=== PATIENT | female | born 1990 | race African-American/Black ===

== ENCOUNTER 2017-10-12 06:06 | Inpatient (IN) | payer OTHER ==
[2017-10-12] MEDS ORDERED: IV RINGERS,LACTATED 1000ML 1,000 ML IV ×2 (06:15→08:38)
[2017-10-12] MEDS ORDERED: ONDANSETRON PF 4 MG/2 ML VIAL. (07:37)
[2017-10-12] MEDS ORDERED: fentaNYL PF VIAL 100 MCG/2 ML VIAL (07:37)
[2017-10-12] MEDS ORDERED: OXYTOCIN 10 UNIT/ML VIAL. ×2 (07:37→08:50)
[2017-10-12] MEDS ORDERED: ePHEDrine PF IN SALINE 50 MG/5 ML DISP.SYRIN IV (07:37)
[2017-10-12] MEDS ORDERED: MORPHINE PF 5 MG/10 ML VIAL. (07:37)
[2017-10-12 07:39] LABS: ADD MAN DIFF? NO
[2017-10-12] MEDS: CITRIC ACID/SODIUM CITRATE 30 ML SOLUTION. PO (07:45)
[2017-10-12 08:19] LABS: BASO % 0 % (0-3); EOS # 0.1 x10^3/uL (0.0-0.7); EOS % 2 % (0-3); HEMATOCRIT 34.3 % (36.0-47.0); HEMOGLOBIN 11.4 g/dL (12.0-15.5); LYMPH # 2.9 x10^3/uL (1.0-4.8); LYMPH % 36 % (24-48); MEAN CORPUSCULAR HEMOGLOBIN 27 pg (25-35); MEAN CORPUSCULAR HGB CONC 33 g/dL (31-37); MEAN CORPUSCULAR VOLUME 81 fL (79-100); MONO # 0.6 x10^3/uL (0.0-1.1); MONO % 8 % (0-9); NEUT # 4.3 x10^3uL (1.8-7.7); NEUT % 54 % (31-73); PLATELET COUNT 225 x10^3/uL (140-400); RED BLOOD COUNT 4.22 x10^6/uL (3.50-5.40); RED CELL DISTRIBUTION WIDTH 15.8 % (11.5-14.5)
[2017-10-12] MEDS ORDERED: DEXAMETHASONE SOD PHOS 20 MG/5 ML VIAL. (08:35)
[2017-10-12] MEDS ORDERED: METOCLOPRAMIDE HCL 10 MG/2 ML VIAL. (08:35)
[2017-10-12] MEDS ORDERED: FAMOTIDINE 20 MG/2 ML VIAL (08:35)
[2017-10-12] MEDS ORDERED: LIDOCAINE 1% PF 2 ML VIAL. ID (08:45)
[2017-10-12] MEDS ORDERED: ATROPINE 0.5 MG/5 ML DISP.SYRIN. IV (08:45)
[2017-10-12] MEDS ORDERED: ONDANSETRON PF 4 MG/2 ML VIAL. IV ×2 (08:45→09:00)
[2017-10-12] MEDS ORDERED: NALOXONE 0.4 MG/ML VIAL. IV (08:45)
[2017-10-12] MEDS ORDERED: fentaNYL PF VIAL 100 MCG/2 ML VIAL IV ×2 (08:45)
[2017-10-12] MEDS ORDERED: MORPHINE SULFATE 2 MG/ML DISP.SYRIN. IV (08:45)
[2017-10-12] MEDS ORDERED: PROCHLORPERAZINE 10 MG/2 ML VIAL. IV (08:45)
[2017-10-12] MEDS ORDERED: HYDROmorphone 2 MG/ML VIAL IV (08:45)
[2017-10-12] MEDS ORDERED: OXYTOCIN 30 UNIT/500 ML PREMIX 500 ML IV (09:00)
[2017-10-12] MEDS ORDERED: 0.9 % SODIUM CHLORIDE 10 ML DISP.SYRIN. IV (09:00)
[2017-10-12] MEDS ORDERED: ZOLPIDEM 5 MG TABLET. PO (09:00)
[2017-10-12] MEDS: KETOROLAC 30 MG/ML INJ. IV ×2 (10:35→18:10)
[2017-10-12] MEDS ORDERED: ceFAZolin 2GM PREMIX 2 GM/50 ML BAG IV (12:00)
[2017-10-12] MEDS: diphenhydrAMINE ORAL ELIXIR 12.5 MG/5 ML ML PO (18:25)
[2017-10-12] MEDS: IV RINGERS,LACTATED 1000ML 1,000 ML IV (19:52)
[2017-10-12] MEDS: IBUPROFEN 800 MG TABLET. PO (22:14)
[2017-10-12] MEDS: DOCUSATE SODIUM 100 MG CAPSULE. PO (22:14)
[2017-10-12] MEDS: oxyCODONE/APAP 5/325 1 TAB TABLET PO (22:15)
[2017-10-13 05:03] LABS: ADD MAN DIFF? NO
[2017-10-13 05:28] LABS: BASO % 0 % (0-3); EOS % 0 % (0-3); HEMATOCRIT 27.9 % (36.0-47.0); LYMPH % 23 % (24-48); MEAN CORPUSCULAR HEMOGLOBIN 27 pg (25-35); MEAN CORPUSCULAR HGB CONC 32 g/dL (31-37); MEAN CORPUSCULAR VOLUME 82 fL (79-100); MONO % 8 % (0-9); NEUT # 8.8 x10^3uL (1.8-7.7); NEUT % 69 % (31-73); PLATELET COUNT 197 x10^3/uL (140-400); RED BLOOD COUNT 3.39 x10^6/uL (3.50-5.40); WHITE BLOOD COUNT 12.8 x10^3/uL (4.0-11.0)
[2017-10-13] MEDS: IBUPROFEN 800 MG TABLET. PO ×3 (05:39→21:27)
[2017-10-13] MEDS: oxyCODONE/APAP 5/325 1 TAB TABLET PO ×4 (05:39→21:27)
[2017-10-13] MEDS: SIMETHICONE 80 MG TAB.CHEW PO ×3 (09:09→21:32)
[2017-10-13] MEDS: DOCUSATE SODIUM 100 MG CAPSULE. PO ×2 (09:09→17:17)
[2017-10-13] MEDS: FERROUS SULFATE 325 MG TABLET. PO ×2 (09:10→17:17)
[2017-10-13] MEDS: MAG HYDROX/ALUMINUM HYD/SIMETH 30 ML ORAL.SUSP PO (18:32)
[2017-10-14] MEDS: DOCUSATE SODIUM 100 MG CAPSULE. PO (05:40)
[2017-10-14] MEDS: oxyCODONE/APAP 5/325 1 TAB TABLET PO ×2 (05:41→10:12)
[2017-10-14] MEDS: SIMETHICONE 80 MG TAB.CHEW PO ×3 (05:41→14:05)
[2017-10-14] MEDS: IBUPROFEN 800 MG TABLET. PO ×2 (05:41→14:05)
[2017-10-14] MEDS: FERROUS SULFATE 325 MG TABLET. PO (10:12)
[2017-10-14 23:10] LABS: RPR Non Reactive (Non Reactive)
== END 2017-10-14 16:07 | disposition home or self-care (01) | DRG 765 ==
LOC: 3 SO LND 06:06 → 3 NORTH 11:48
PROC: 10D00Z1 Extraction of Products of Conception, Low, Open Approach (ICD-10-PCS; principal; 2017-10-12)
DX: O34.211 Maternal care for low transverse scar from previous cesarean delivery (principal); D62 Acute posthemorrhagic anemia; O99.824 Streptococcus B carrier state complicating childbirth; Z37.0 Single live birth; Z3A.39 39 weeks gestation of pregnancy
CPT/HCPCS: 36415; 85025; 86593; 86850; 86900; 86901; J0690; J1100; J1885; J2270; J2405; J2590; J2765; J3010; J7120; S0028

== ENCOUNTER → 2019-08-21 | Outpatient (CLI) | payer OTHER ==
[2017-10-14 15:15] VITALS: BP 98/59
[~2019-08-21] MED LIST: DOCU-109 PO; IBUP-1060 PO; Ibuprofen PO; OXYC1TAB15 PO; PREN1TAB58 PO
[2019-08-21 09:49] LABS: BASO % 0 % (0-3); EOS # 0.1 x10^3/uL (0.0-0.7); EOS % 2 % (0-3); HEMATOCRIT 28.9 % (36.0-47.0); HEMOGLOBIN 9.6 g/dL (12.0-15.5); LYMPH # 2.9 x10^3/uL (1.0-4.8); LYMPH % 31 % (24-48); MEAN CORPUSCULAR HEMOGLOBIN 26 pg (25-35); MEAN CORPUSCULAR HGB CONC 33 g/dL (31-37); MEAN CORPUSCULAR VOLUME 77 fL (79-100); MONO # 0.8 x10^3/uL (0.0-1.1); MONO % 8 % (0-9); NEUT # 5.5 x10^3/uL (1.8-7.7); NEUT % 59 % (31-73); PLATELET COUNT 255 x10^3/uL (140-400); RED BLOOD COUNT 3.75 x10^6/uL (3.50-5.40); RED CELL DISTRIBUTION WIDTH 14.1 % (11.5-14.5); WHITE BLOOD COUNT 9.4 x10^3/uL (4.0-11.0)
== END | disposition home or self-care (01) ==
LOC: LAB 09:19
PROVIDERS: ATTEND Obstetrics & Gynecology
DX: Z32.01 Encounter for pregnancy test, result positive (principal); O34.219 Maternal care for unspecified type scar from previous cesarean delivery; O26.843 Uterine size-date discrepancy, third trimester
CPT/HCPCS: 36415; 85025; 86592; 86703; 86762; 86850; 86900; 86901; 87340

== ENCOUNTER 2019-09-01 16:49 | Inpatient (IN) | payer OTHER ==
[~2019-09-01] VITALS: Ht 154.9 cm; Wt 107.0 kg
[2019-09-01] MEDS: FERROUS SULFATE 325 MG TABLET. PO SCH (16:30)
[2019-09-01] MEDS ORDERED: IV RINGERS,LACTATED 1000ML 1,000 ML IV PRN (17:15)
[2019-09-01] MEDS ORDERED: CITRIC ACID/SODIUM CITRATE 30 ML SOLUTION. PO ONE (19:30)
[2019-09-01] MEDS ORDERED: ceFAZolin 2GM PREMIX 2 GM/50 ML BAG IV ONE (20:00)
[2019-09-01 20:12] VITALS: BP 107/57
[2019-09-01 21:45] LABS: BASO % 0 % (0-3); EOS # 0.1 x10^3/uL (0.0-0.7); EOS % 1 % (0-3); HEMOGLOBIN 9.7 g/dL (12.0-15.5); LYMPH # 2.8 x10^3/uL (1.0-4.8); LYMPH % 33 % (24-48); MEAN CORPUSCULAR HEMOGLOBIN 26 pg (25-35); MEAN CORPUSCULAR HGB CONC 34 g/dL (31-37); MEAN CORPUSCULAR VOLUME 77 fL (79-100); MONO # 0.8 x10^3/uL (0.0-1.1); MONO % 9 % (0-9); NEUT # 4.7 x10^3/uL (1.8-7.7); NEUT % 56 % (31-73); PLATELET COUNT 234 x10^3/uL (140-400); RED BLOOD COUNT 3.76 x10^6/uL (3.50-5.40); RED CELL DISTRIBUTION WIDTH 15.1 % (11.5-14.5); WHITE BLOOD COUNT 8.5 x10^3/uL (4.0-11.0)
[2019-09-01] MEDS: diphenhydrAMINE HCL 25 MG CAPSULE PO PRN (22:10)
[2019-09-01 22:22] LABS: BILIRUBIN,URINE NEGATIVE (NEG); CLARITY,URINE CLEAR; COLOR,URINE YELLOW; NITRITE,URINE NEGATIVE (NEG); PROTEIN,URINE NEGATIVE (NEG-TRACE)
[2019-09-01 22:26] LABS: SQUAMOUS EPITHELIAL CELL,UR MOD /LPF
[2019-09-01 22:27] LABS: BACTERIA,URINE MODERATE /HPF (0-FEW); TRICHOMONAS,URINE PRESENT; WBC,URINE 20-40 /HPF (0-4)
[2019-09-01 22:29] LABS: BARBITURATES NEG (NEG); BENZODIAZEPINES NEG (NEG); CANNABINOIDS POS (NEG); COCAINE NEG (NEG); METHADONE NEG (NEG); OPIATES NEG (NEG); PHENCYCLIDINE NEG (NEG); RBC,URINE OCC /HPF (0-2)
[2019-09-01 22:36] LABS: AMPHETAMINE/METHAMPHETAMINE NEG (NEG)
[2019-09-02] VITALS (9 sets, daily range): BP systolic 105–125; BP diastolic 48–68
[2019-09-02] MEDS: IV RINGERS,LACTATED 1000ML 1,000 ML IV SCH ×3 (04:06→18:47)
[2019-09-02] MEDS ORDERED: DEXAMETHASONE SOD PHOS 4 MG/ML VIAL ONE (07:42)
[2019-09-02] MEDS ORDERED: MORPHINE PF 10 MG/10 ML AMPUL. ONE (07:42)
[2019-09-02] MEDS ORDERED: ONDANSETRON PF 4 MG/2 ML VIAL. ONE (07:42)
[2019-09-02] MEDS ORDERED: OXYTOCIN 10 UNIT/ML VIAL. ONE ×3 (07:42)
[2019-09-02] MEDS ORDERED: PHENYLEPHRINE in 0.9% NACL PF 1 MG/10 ML SYRINGE. IV ONE (07:42)
[2019-09-02] MEDS ORDERED: fentaNYL PF VIAL 100 MCG/2 ML VIAL ONE (07:42)
--- NOTE | 2019-09-02 07:58 | PDOC1 ---
OB - History Hx of Present Care: Limited Care Ultrasounds: Other (U/S at hospital) Obstetrical Complications: None Medical Complications: None Past Family/Social History * Past Medical, Surgical, Family and Obstetric Histories reviewed from chart. Rubella: Immune RPR/VDRL: Negative GBS Status: Positive HBsAG: Negative OB - Chief Complaint & HPI Date of Admission: Date of Admission: Sep 01, 2019 at 16:49 Chief Complaint/History : 5 Para: 3 EGA: 38 Reason for admission: section (BPP 02/08, Late PNC) Indication for : desires repeat Admission Nurse Assessment Rev: Yes OB - Admission Exam Physical Exam Vitals: VS - Last 72 Hours, by Label Date Time Temp Pulse Resp B/P (MAP) Pulse Ox O2 Delivery O2 Flow Rate FiO2 09/01/19 20:12 98.7 88 16 107/57 (74) Room Air 98.7 HEENT: Normal Heart: Regular Rate Lungs: Clear Abdomen: Gravid, Non tender, Soft Extremities: Edema Reflexes: Normal Cervical Dilatation: None Effacement: 25% Station: -3 Membranes: Intact Heart Rate: Normal Accelerations: Accelerations Present Decelerations: No decelerations Contractions on Admission: >10 Minutes Apart Intensity: Mild Text A: 38 wks IUP Previous c/s x 3 BPP 6/8 P: Admit for repeat c/s. DB RAMOS Jr, MD Sep 02, 2019 07:58
[2019-09-02] MEDS ORDERED: 0.9 % SODIUM CHLORIDE 10 ML DISP.SYRIN. IV PRN (08:00)
[2019-09-02] MEDS ORDERED: OXYTOCIN 30 UNIT/500 ML PREMIX 500 ML IV PRN (08:00)
[2019-09-02] MEDS ORDERED: ONDANSETRON PF 4 MG/2 ML VIAL. IV PRN (08:00)
[2019-09-02] MEDS ORDERED: diphenhydrAMINE ORAL ELIXIR 12.5 MG/5 ML ML PO PRN (08:00)
[2019-09-02] MEDS ORDERED: MAG HYDROX/ALUMINUM HYD/SIMETH 30 ML ORAL.SUSP PO PRN (08:00)
[2019-09-02] MEDS ORDERED: SIMETHICONE 80 MG TAB.CHEW PO PRN (08:00)
[2019-09-02] MEDS ORDERED: ZOLPIDEM 5 MG TABLET. PO PRN (08:00)
[2019-09-02] MEDS ORDERED: ePHEDrine PF IN SALINE 50 MG/10 ML SYRINGE. IV ONE (08:22)
--- NOTE | 2019-09-02 08:40 | RAD ---
Examination: OB LIMITED, BIOPHYS PROFILE W/O NON STRESS History: Limited care. Comparison/Correlation: None Findings: Limited OB ultrasound exam was performed. Biophysical profile was performed. breathing movements score is 0/2. motion, tone, and amniotic fluid volume are each 2/2. Total biophysical profile score of 6/8. Cephalic lie is noted. Amniotic fluid index is 12.2. Fundal location of placenta is evident. heart rate of 130 beats per minute noted. Cardiac activity is seen. Biparietal diameter is 9.43 cm. Head circumference is 34.35 cm. Abdominal circumference is 34.18 cm. Femoral length is 7.4 cm. Head circumference abdominal circumference ratio is 1.0. Estimated weight is 3453 g. Gestational age is 38 weeks 4 days. EDC by ultrasound is 09/11/2019. Impression: Biophysical profile score of 6 out of 8. breathing movement score is 0 out of 2. Single living intrauterine gestation. Average ultrasound age is 30 weeks 4 days. Electronically signed by: Renny Judge MD (09/02/2019 8:37 AM) [facility]
[2019-09-02] MEDS ORDERED: LIDOCAINE 2% PF 5 ML VIAL. ONE (08:47)
--- NOTE | 2019-09-02 09:05 | PDOC4 ---
OB Operative Note Date: Sep 02, 2019 PRE OP DIAGNOSIS: Previoujs C- section POST OP DIAGNOSIS: Previous C- section OPERATION PERFORMED: R [facility] Surgeon Dr. Vera Anesthesia: Regional (Spinal) Blood Loss 700 ml Specimen placenta and OB Findings: Position (Vertex), Sex (Male), (8/9), Weight (3280 Gram) Complications none Additional Remarks ptDB Melgoza Jr, MD Sep 02, 2019 09:05
--- NOTE | 2019-09-02 09:19 | OP ---
DATE OF SURGERY: 09/02/2019 PREOPERATIVE DIAGNOSES: 1. A 38 weeks intrauterine . 2. Limited care. 3. Previous section x 3. 4. Biophysical profile 6/8. POSTOPERATIVE DIAGNOSIS: 1. A 38 weeks intrauterine . 2. Limited care. 3. Previous section x 3. 4. Biophysical profile 6/8. PROCEDURE: Repeat low-transverse section. SURGEON: Db Vera MD ANESTHESIA: Spinal. ESTIMATED BLOOD LOSS: 700 mL. COMPLICATIONS: None. FINDINGS: Viable male infant, Apgars 8 and 9, weight 3280 grams. Three-vessel cord placenta delivered manually. SUMMARY: A 28-year-old 5, para 3, 3 previous C-sections, had presented with limited care. Ultrasound indicated a 38-week gestation. The patient was having occasional contractions and had a BPP that was 6/8. Decision was made to proceed with repeat section. The patient was counseled on risks, benefits and expectations and voiced clear understanding to proceed. DESCRIPTION OF PROCEDURE: The patient was taken to surgery suite and placed in dorsal supine position. She was prepped with ChloraPrep and draped in a sterile fashion. After adequate anesthesia, a Pfannenstiel skin incision was made with scalpel down to and through the fascia. The fascia was extended laterally using curved Rodríguez scissors. The superior edge of fascia was grasped with 2 Nancy clamps and dissected free of the abdominal rectus muscles using blunt dissection along with Bovie cautery. The same process took place inferiorly. The abdominal rectus muscles were dissected bluntly. Peritoneum was entered sharply with Metzenbaum scissors. This incision was extended superiorly as well as inferiorly. The Brian ring retractor was placed. A low-transverse hysterotomy incision was made with scalpel down to the amniotic sac. Hysterotomy incision was extended laterally and superiorly digitally. Amniotomy was performed with Allis clamp, which elicited a moderate amount of clear fluid. With the aid of fundal pressure, the infant's head was delivered in a smooth atraumatic manner. With additional fundal pressure, the anterior shoulder was delivered followed by posterior shoulder and rest of the male was delivered. The was suctioned with bulb syringe orally and nasally. Umbilical cord was clamped twice and cut and viable male infant was handed to waiting nursing staff. Umbilical cord blood was then obtained. Three-vessel cord placenta was delivered manually. The uterus was then exteriorized and cleared of clot and debris with moist lap. Hysterotomy incision was reapproximated using #1 Vicryl suture in running locked fashion. A [id number]-wc-[id number] suture was placed in the right apex of the hysterotomy incision for better hemostasis. The uterus palpated firm. Fallopian tubes and ovaries appeared normal bilaterally. Posterior cul-de-sac was cleared of clot and debris with moist lap. The uterus was then returned to the abdomen. Pericolic gutters were cleared of clot and debris with a moist lap. Hysterotomy incision was reviewed and was hemostatic. The Brian ring retractor was removed. The peritoneum was reapproximated using 1 Vicryl suture in running fashion. The abdominal rectus muscles were reapproximated using 1 Vicryl suture in running fashion. The fascia was reapproximated using Stratafix in a running fashion. Skin was reapproximated using 4-0 Vicryl suture in a subcuticular manner. Prevena wound VAC was placed. The patient tolerated the procedure well and was taken to recovery room in stable condition. Sponge and needle count correct x 3. DB VERA MD DR: AHMET/martell JOB#: [id number] / [id number]
[2019-09-02] MEDS: KETOROLAC 30 MG/ML VIAL. IV PRN ×2 (10:47→21:09)
[2019-09-02] MEDS ORDERED: metroNIDAZOLE 500 MG TABLET PO ONE (20:00)
[2019-09-02] MEDS: oxyCODONE/APAP 5/325 1 TAB TABLET PO PRN (23:35)
[2019-09-03 01:32] VITALS: BP 113/61
[2019-09-03] MEDS: IBUPROFEN 400 MG TABLET. PO PRN ×2 (06:04→17:21)
[2019-09-03 06:11] VITALS: BP 116/64
[2019-09-03 06:53] LABS: BASO % 0 % (0-3); EOS % 0 % (0-3); HEMATOCRIT 26.2 % (36.0-47.0); HEMOGLOBIN 8.4 g/dL (12.0-15.5); LYMPH # 3.2 x10^3/uL (1.0-4.8); LYMPH % 25 % (24-48); MEAN CORPUSCULAR HEMOGLOBIN 25 pg (25-35); MEAN CORPUSCULAR HGB CONC 32 g/dL (31-37); MEAN CORPUSCULAR VOLUME 78 fL (79-100); MONO % 8 % (0-9); NEUT # 8.4 x10^3/uL (1.8-7.7); NEUT % 67 % (31-73); PLATELET COUNT 206 x10^3/uL (140-400); RED BLOOD COUNT 3.35 x10^6/uL (3.50-5.40); RED CELL DISTRIBUTION WIDTH 15.2 % (11.5-14.5); WHITE BLOOD COUNT 12.7 x10^3/uL (4.0-11.0)
--- NOTE | 2019-09-03 09:47 | PDOC ---
OB Progress Note Date of Service 09/03/19 Time of Evaluation 0940 Notes Pt. feeling well. Pain controlled. Lab Laboratory Tests Test 09/01/19 20:50 09/01/19 22:15 09/03/19 04:45 White Blood Count 8.5 x10^3/uL (4.0-11.0) 12.7 x10^3/uL (4.0-11.0) Red Blood Count 3.76 x10^6/uL (3.50-5.40) 3.35 x10^6/uL (3.50-5.40) Hemoglobin 9.7 g/dL (12.0-15.5) 8.4 g/dL (12.0-15.5) Hematocrit 29.0 % (36.0-47.0) 26.2 % (36.0-47.0) Mean Corpuscular Volume 77 fL (79-100) 78 fL (79-100) Mean Corpuscular Hemoglobin 26 pg (25-35) 25 pg (25-35) Mean Corpuscular Hemoglobin Concent 34 g/dL (31-37) 32 g/dL (31-37) Red Cell Distribution Width 15.1 % (11.5-14.5) 15.2 % (11.5-14.5) Platelet Count 234 x10^3/uL (140-400) 206 x10^3/uL (140-400) Neutrophils (%) (Auto) 56 % (31-73) 67 % (31-73) Lymphocytes (%) (Auto) 33 % (24-48) 25 % (24-48) Monocytes (%) (Auto) 9 % (0-9) 8 % (0-9) Eosinophils (%) (Auto) 1 % (0-3) 0 % (0-3) Basophils (%) (Auto) 0 % (0-3) 0 % (0-3) Neutrophils # (Auto) 4.7 x10^3/uL (1.8-7.7) 8.4 x10^3/uL (1.8-7.7) Lymphocytes # (Auto) 2.8 x10^3/uL (1.0-4.8) 3.2 x10^3/uL (1.0-4.8) Monocytes # (Auto) 0.8 x10^3/uL (0.0-1.1) 1.0 x10^3/uL (0.0-1.1) Eosinophils # (Auto) 0.1 x10^3/uL (0.0-0.7) 0.0 x10^3/uL (0.0-0.7) Basophils # (Auto) 0.0 x10^3/uL (0.0-0.2) 0.0 x10^3/uL (0.0-0.2) Treponema pallidum Antibody Nonreactive (Nonreactive) Urine Collection Type Unknown Urine Color Yellow Urine Clarity Clear Urine pH 6.0 Urine Specific [place] 1.020 Urine Protein Negative mg/dL (NEG-TRACE) Urine Glucose (UA) Negative mg/dL (NEG) Urine Ketones (Stick) Negative mg/dL (NEG) Urine Blood Negative (NEG) Urine Nitrite Negative (NEG) Urine Bilirubin Negative (NEG) Urine Urobilinogen Dipstick 1.0 mg/dL (0.2 mg/dL) Urine Leukocyte Esterase Large (NEG) Urine RBC Occ /HPF (0-2) Urine WBC 20-40 /HPF (0-4) Urine Squamous Epithelial Cells Mod /LPF Urine Bacteria Moderate /HPF (0-FEW) Urine Mucus Slight /LPF Urine Trichomonas Present Urine Opiates Screen Neg (NEG) Urine Methadone Screen Neg (NEG) Urine Barbiturates Neg (NEG) Urine Phencyclidine Screen Neg (NEG) Urine Amphetamine/Methamphetamine Neg (NEG) Urine Benzodiazepines Screen Neg (NEG) Urine Cocaine Screen Neg (NEG) Urine Cannabinoids Screen Pos (NEG) Urine Ethyl Alcohol Neg (NEG) Laboratory Tests Test 09/03/19 04:45 White Blood Count 12.7 x10^3/uL (4.0-11.0) Red Blood Count 3.35 x10^6/uL (3.50-5.40) Hemoglobin 8.4 g/dL (12.0-15.5) Hematocrit 26.2 % (36.0-47.0) Mean Corpuscular Volume 78 fL (79-100) Mean Corpuscular Hemoglobin 25 pg (25-35) Mean Corpuscular Hemoglobin Concent 32 g/dL (31-37) Red Cell Distribution Width 15.2 % (11.5-14.5) Platelet Count 206 x10^3/uL (140-400) Neutrophils (%) (Auto) 67 % (31-73) Lymphocytes (%) (Auto) 25 % (24-48) Monocytes (%) (Auto) 8 % (0-9) Eosinophils (%) (Auto) 0 % (0-3) Basophils (%) (Auto) 0 % (0-3) Neutrophils # (Auto) 8.4 x10^3/uL (1.8-7.7) Lymphocytes # (Auto) 3.2 x10^3/uL (1.0-4.8) Monocytes # (Auto) 1.0 x10^3/uL (0.0-1.1) Eosinophils # (Auto) 0.0 x10^3/uL (0.0-0.7) Basophils # (Auto) 0.0 x10^3/uL (0.0-0.2) Medications Current Medications Ringer's Solution 1,000 ml @ 125 mls/hr Q8H PRN IV PER PROTOCOL; Start 9 at 17:15 Ringer's Solution 1,000 ml @ 125 mls/hr Q8H IV Last administered on 09/02/19at 18:47; Start 09/01/19 at 18:53; Stop 09/02/19 at 21:11; Status DC Cefazolin Sodium/ Dextrose 50 ml @ 100 mls/hr 1X ONCE IV ; Start 09/01/19 at 19:00; Stop 09/01/19 at 19:29; Status DC Citric Acid/ Sodium Citrate (Bicitra) 30 ml 1X ONCE PO ; Start 09/01/19 at 19:30; Stop 09/01/19 at 19:31; Status DC Diphenhydramine HCl (Benadryl) 50 mg PRN QHS PRN PO INSOMNIA Last administered on 09/01/19at 22:10; Start 09/01/19 at 20:45 Morphine Sulfate (Morphine Preservative Free) 10 mg STK-MED ONCE .ROUTE ; Start 09/02/19 at 07:42; Stop 09/02/19 at 07:42; Status DC Fentanyl Citrate (Fentanyl 2ml Vial) 100 mcg STK-MED ONCE .ROUTE ; Start 09/02/19 at 07:42; Stop 09/02/19 at 07:42; Status DC Dexamethasone Sodium Phosphate (Decadron) 4 mg STK-MED ONCE .ROUTE ; Start 09/02/19 at 07:42; Stop 09/02/19 at 07:42; Status DC Ondansetron HCl (Zofran) 4 mg STK-MED ONCE .ROUTE ; Start 09/02/19 at 07:42; Stop 09/02/19 at 07:42; Status DC Oxytocin (Pitocin) 10 unit STK-MED ONCE .ROUTE ; Start 09/02/19 at 07:42; Stop 09/02/19 at 07:43; Status DC Oxytocin (Pitocin) 10 unit STK-MED ONCE .ROUTE ; Start 09/02/19 at 07:42; Stop 09/02/19 at 07:43; Status DC Oxytocin (Pitocin) 10 unit STK-MED ONCE .ROUTE ; Start 09/02/19 at 07:42; Stop 09/02/19 at 07:43; Status DC Phenylephrine HCl (PHENYLEPHRINE in 0.9% NACL PF) 1 mg STK-MED ONCE IV ; Start 09/02/19 at 07:42; Stop 09/02/19 at 07:43; Status DC Sodium Chloride (Normal Saline Flush) 3 ml QSHIFT PRN IV AFTER MEDS AND BLOOD DRAWS; Start 09/02/19 at 08:00 Oxytocin/Sodium Chloride 500 ml @ 125 mls/hr CONT PRN IV EXCESSIVE POST- BLEEDING; Start 09/02/19 at 08:00; Stop 09/02/19 at 15:59; Status DC Ibuprofen (Motrin) 800 mg PRN Q4HRS PRN PO INFLAMMATION Last administered on 09/03/19at 06:04; Start 09/02/19 at 08:00 Ondansetron HCl (Zofran) 4 mg PRN Q6HRS PRN IV NAUSEA/VOMITING; Start 09/02/19 at 08:00 Docusate Sodium (Colace) 100 mg PRN BID PRN PO CONSTIPATION; Start 09/02/19 at 08:00 Al Hydroxide/Mg Hydroxide (Mylanta Plus Xs) 30 ml PRN Q4HRS PRN PO HEARTBURN / GAS; Start 09/02/19 at 08:00 Simethicone (Gas-X) 80 mg PRN AFTMEALHC PRN PO GAS / BLOATING; Start 09/02/19 at 08:00 Diphenhydramine HCl (Benadryl Oral Elixir) 12.5 mg PRN Q6HRS PRN PO ITCHING; Start 09/02/19 at 08:00 Ferrous Sulfate (Feosol) 325 mg BIDWMEALS PO ; Start 09/02/19 at 08:00 Zolpidem Tartrate (Ambien) 5 mg PRN QHS PRN PO INSOMNIA, MAY REPEAT X1; Start 09/02/19 at 08:00 Oxycodone/ Acetaminophen (Percocet 5/325) 2 tab PRN Q4HRS PRN PO MODERATE PAIN, SEVERE PAIN Last administered on 09/02/19at 23:35; Start 09/02/19 at 08:00 Ketorolac Tromethamine (Toradol 30mg Vial) 30 mg PRN Q6HRS PRN IV PAIN Last administered on 09/02/19at 21:09; Start 09/02/19 at 08:00; Stop 09/07/19 at 07:59 Ephedrine Sulfate (ePHEDrine PF IN SALINE SYRINGE) 50 mg STK-MED ONCE IV ; Start 09/02/19 at 08:22; Stop 09/02/19 at 08:22; Status DC Lidocaine HCl (Lidocaine Pf 2% Vial) 5 ml STK-MED ONCE .ROUTE ; Start 09/02/19 at 08:47; Stop 09/02/19 at 08:47; Status DC Metronidazole (Flagyl) 2,000 mg 1X ONCE PO Last administered on 09/02/19at 21:03; Start 09/02/19 at 20:00; Stop 09/02/19 at 20:07; Status DC Cefazolin Sodium/ Dextrose (Ancef 2gm Premix) 2 gm STK-MED ONCE IV ; Start 09/01/19 at 20:00; Stop 09/03/19 at 09:10; Status DC Active Scripts Active Reported Vitamins ( Vits W-Ca,Fe,Fa(<1MG)) 1 Each Tablet 1 Tab PO DAILY Exam Abd: soft, mild tenderness, fundus firm Prevena in place. Assessment POD#1 s/p repeat c/s Plan of Care: Continue current Tx, Mgmt DB RAMOS Jr, MD Sep 03, 2019 09:47
[2019-09-03 11:15] VITALS: BP 114/62
[2019-09-03] MEDS: DOCUSATE SODIUM 100 MG CAPSULE. PO PRN (11:15)
[2019-09-03] MEDS: oxyCODONE/APAP 5/325 1 TAB TABLET PO PRN ×2 (11:16→20:47)
[2019-09-03 15:10] VITALS: BP 113/65
[2019-09-03] MEDS: FERROUS SULFATE 325 MG TABLET. PO SCH ×2 (17:00→17:22)
[2019-09-03 20:30] VITALS: BP 125/67
[2019-09-04] MEDS: diphenhydrAMINE HCL 25 MG CAPSULE PO PRN ×2 (02:06→23:19)
[2019-09-04] MEDS: IBUPROFEN 400 MG TABLET. PO PRN ×2 (02:53→22:05)
[2019-09-04 05:40] VITALS: BP 97/46
--- NOTE | 2019-09-04 07:54 | PDOC ---
OB Progress Note Date of Service 09/04/19 Time of Evaluation 0750 Notes Pt. feeling well. No complaints. Lab Laboratory Tests Test 09/03/19 04:45 White Blood Count 12.7 x10^3/uL (4.0-11.0) Red Blood Count 3.35 x10^6/uL (3.50-5.40) Hemoglobin 8.4 g/dL (12.0-15.5) Hematocrit 26.2 % (36.0-47.0) Mean Corpuscular Volume 78 fL (79-100) Mean Corpuscular Hemoglobin 25 pg (25-35) Mean Corpuscular Hemoglobin Concent 32 g/dL (31-37) Red Cell Distribution Width 15.2 % (11.5-14.5) Platelet Count 206 x10^3/uL (140-400) Neutrophils (%) (Auto) 67 % (31-73) Lymphocytes (%) (Auto) 25 % (24-48) Monocytes (%) (Auto) 8 % (0-9) Eosinophils (%) (Auto) 0 % (0-3) Basophils (%) (Auto) 0 % (0-3) Neutrophils # (Auto) 8.4 x10^3/uL (1.8-7.7) Lymphocytes # (Auto) 3.2 x10^3/uL (1.0-4.8) Monocytes # (Auto) 1.0 x10^3/uL (0.0-1.1) Eosinophils # (Auto) 0.0 x10^3/uL (0.0-0.7) Basophils # (Auto) 0.0 x10^3/uL (0.0-0.2) Medications Current Medications Ringer's Solution 1,000 ml @ 125 mls/hr Q8H PRN IV PER PROTOCOL; Start 09/01/19 at 17:15; Stop 09/03/19 at 22:19; Status DC Ringer's Solution 1,000 ml @ 125 mls/hr Q8H IV Last administered on 09/02/19at 18:47; Start 09/01/19 at 18:53; Stop 09/02/19 at 21:11; Status DC Cefazolin Sodium/ Dextrose 50 ml @ 100 mls/hr 1X ONCE IV ; Start 09/01/19 at 19:00; Stop 09/01/19 at 19:29; Status DC Citric Acid/ Sodium Citrate (Bicitra) 30 ml 1X ONCE PO ; Start 09/01/19 at 19:30; Stop 09/01/19 at 19:31; Status DC Diphenhydramine HCl (Benadryl) 50 mg PRN QHS PRN PO INSOMNIA Last administered on 09/04/19at 02:06; Start 09/01/19 at 20:45 Morphine Sulfate (Morphine Preservative Free) 10 mg STK-MED ONCE .ROUTE ; Start 09/02/19 at 07:42; Stop 09/02/19 at 07:42; Status DC Fentanyl Citrate (Fentanyl 2ml Vial) 100 mcg STK-MED ONCE .ROUTE ; Start 09/02/19 at 07:42; Stop 09/02/19 at 07:42; Status DC Dexamethasone Sodium Phosphate (Decadron) 4 mg STK-MED ONCE .ROUTE ; Start 09/02/19 at 07:42; Stop 09/02/19 at 07:42; Status DC Ondansetron HCl (Zofran) 4 mg STK-MED ONCE .ROUTE ; Start 09/02/19 at 07:42; Stop 09/02/19 at 07:42; Status DC Oxytocin (Pitocin) 10 unit STK-MED ONCE .ROUTE ; Start 09/02/19 at 07:42; Stop 09/02/19 at 07:43; Status DC Oxytocin (Pitocin) 10 unit STK-MED ONCE .ROUTE ; Start 09/02/19 at 07:42; Stop 09/02/19 at 07:43; Status DC Oxytocin (Pitocin) 10 unit STK-MED ONCE .ROUTE ; Start 09/02/19 at 07:42; Stop 09/02/19 at 07:43; Status DC Phenylephrine HCl (PHENYLEPHRINE in 0.9% NACL PF) 1 mg STK-MED ONCE IV ; Start 09/02/19 at 07:42; Stop 09/02/19 at 07:43; Status DC Sodium Chloride (Normal Saline Flush) 3 ml QSHIFT PRN IV AFTER MEDS AND BLOOD DRAWS; Start 09/02/19 at 08:00 Oxytocin/Sodium Chloride 500 ml @ 125 mls/hr CONT PRN IV EXCESSIVE POST- BLEEDING; Start 09/02/19 at 08:00; Stop 09/02/19 at 15:59; Status DC Ibuprofen (Motrin) 800 mg PRN Q4HRS PRN PO INFLAMMATION Last administered on 09/04/19 02:53; Start 09/02/19 at 08:00 Ondansetron HCl (Zofran) 4 mg PRN Q6HRS PRN IV NAUSEA/VOMITING; Start 09/02/19 at 08:00 Docusate Sodium (Colace) 100 mg PRN BID PRN PO CONSTIPATION Last administered on 09/03/19at 11:15; Start 09/02/19 at 08:00 Al Hydroxide/Mg Hydroxide (Mylanta Plus Xs) 30 ml PRN Q4HRS PRN PO HEARTBURN / GAS; Start 09/02/19 at 08:00 Simethicone (Gas-X) 80 mg PRN AFTMEALHC PRN PO GAS / BLOATING; Start 09/02/19 at 08:00 Diphenhydramine HCl (Benadryl Oral Elixir) 12.5 mg PRN Q6HRS PRN PO ITCHING; Start 09/02/19 at 08:00 Ferrous Sulfate (Feosol) 325 mg BIDWMEALS PO Last administered on 09/03/19at 17:22; Start 09/02/19 at 08:00 Zolpidem Tartrate (Ambien) 5 mg PRN QHS PRN PO INSOMNIA, MAY REPEAT X1; Start 09/02/19 at 08:00 Oxycodone/ Acetaminophen (Percocet 5/325) 2 tab PRN Q4HRS PRN PO MODERATE PAIN, SEVERE PAIN Last administered on 09/03/19at 20:47; Start 09/02/19 at 08:00 Ketorolac Tromethamine (Toradol 30mg Vial) 30 mg PRN Q6HRS PRN IV PAIN Last administered on 09/02/19at 21:09; Start 09/02/19 at 08:00; Stop 09/07/19 at 07:59 Ephedrine Sulfate (ePHEDrine PF IN SALINE SYRINGE) 50 mg STK-MED ONCE IV ; Start 09/02/19 at 08:22; Stop 09/02/19 at 08:22; Status DC Lidocaine HCl (Lidocaine Pf 2% Vial) 5 ml STK-MED ONCE .ROUTE ; Start 09/02/19 at 08:47; Stop 09/02/19 at 08:47; Status DC Metronidazole (Flagyl) 2,000 mg 1X ONCE PO Last administered on 09/02/19at 21:03; Start 09/02/19 at 20:00; Stop 09/02/19 at 20:07; Status DC Cefazolin Sodium/ Dextrose (Ancef 2gm Premix) 2 gm STK-MED ONCE IV ; Start 09/01/19 at 20:00; Stop 09/03/19 at 09:10; Status DC Active Scripts Active Reported Vitamins ( Vits W-Ca,Fe,Fa(<1MG)) 1 Each Tablet 1 Tab PO DAILY Exam Abd: soft, non tender, fundus firm Prevena in place Assessment POD#2 s/p repeat c/s Plan of Care: Continue current Tx, Mgmt DB RAMOS Jr, MD Sep 04, 2019 07:54
[2019-09-04] MEDS: FERROUS SULFATE 325 MG TABLET. PO SCH ×2 (10:00→22:15)
[2019-09-04] MEDS: oxyCODONE/APAP 5/325 1 TAB TABLET PO PRN ×2 (10:48→19:46)
[2019-09-04 11:20] VITALS: BP 102/55
--- NOTE | 2019-09-04 16:32 | NUR ---
SS following up with referral regarding "Mom with limited care, baby tested positive for Marijuana in his meconium. Mom previously adopted out her second child, but has custody of her other children." SS reviewed mother chart and spoke with and mother RN. Mother UDS positive for Marijuana and urine positive for Marijuana. Meconium was reported to be negative. SS met with mother to discuss circumstances surrounding the referral. Mother reports using Marijuana due to issues with nausea and vomiting. Mother reported no history with DCF or behavioral health history. Mother reported having all needed infant supplies to include diapers, wipes, clothing, crib, carseat, etc.... Mother reported having a good family support. Mother reported that she has custody of two of her children in addition to this . She reported that she chose to adopt out her second child in an open adoption due to financial and social issues at the time. Mother has Medicaid and reported that she will contact [facility] for an appointment. Mother reported that all of her children see Dr. Delcid in [place] for pediatrics. SS completed hotline report for Marijuana use and limited care, intake# [id number]. Infant and mother RN notified.
[2019-09-04 21:31] VITALS: BP 120/54
[2019-09-05 05:42] VITALS: BP 110/56
--- NOTE | 2019-09-05 08:09 | PDOC3 ---
OB DISCHARGE SUMMARY DATE OF ADMISSION: 09/02/19 DATE OF DISCHARGE: 09/05/19 REASON FOR ADMISSION: section INTRAPARTUM PROCEDURES: : Low Cerv Trans DISCHARGE DIAGNOSIS: Term Delivered DISCHARGE INFORMATION: Activity (ad geno), Diet (regular), Instructions (pelvic rest x 6 wks, no driving x 2 wks, no lifting > 20lbs. x 6 wks) HOSPITAL COURSE Term gestation delivered section without complications. DB RAMOS Jr, MD Sep 05, 2019 08:09
[2019-09-05] MEDS ORDERED: DOCU-153 PO (08:11)
[2019-09-05] MEDS ORDERED: IBUP-1027 PO (08:11)
[2019-09-05] MEDS ORDERED: OXYC1TAB15 PO (08:11)
--- NOTE | 2019-09-05 08:12 | DISCH ---
DISCHARGE INSTRUCTIONS Condition on Discharge Condition on Discharge: Stable Activity After Discharge Activity Instructions for Disc: Activity as tolerated Bathing Instructions: Shower-keep dressing dry Lifting Instructions after Dis: No heavy lifting Exercise Instruction after Dis: Progress as tolerated Driving Instructions after Dis: No driving for 2 weeks Diet after Discharge Diet after Discharge: Regular Diet Texture: Regular Wound Incision Care Wound/Incision Care: Ice to area for comfort, May get incision wet Contacting the DRJason after DC Call your doctor for: Concerns you may have Follow-Up Follow up with: Dr. Vera in 2 wks Treatment/Equipment after DC Adaptive Equipment Issued: None DB VERA Jr, MD Sep 05, 2019 08:12
[2019-09-05] MEDS: FERROUS SULFATE 325 MG TABLET. PO SCH (08:42)
[2019-09-05] MEDS: DOCUSATE SODIUM 100 MG CAPSULE. PO PRN (08:43)
[2019-09-05] MEDS: oxyCODONE/APAP 5/325 1 TAB TABLET PO PRN ×2 (08:43→12:36)
[2019-09-05] MEDS: IBUPROFEN 400 MG TABLET. PO PRN (08:43)
--- NOTE | 2019-09-05 09:00 | NUR ---
Pt refused MMR when offered. I informed her of the importance and she said " I'm not having any more kids". She also refused the flu and TDAP vaccine.
[2019-09-05 12:30] VITALS: BP 104/54
--- NOTE | 2019-09-05 13:45 | NUR ---
D/C and F/U instructions given to pt. Pt taken out of the hospital per w/c with her belongings and infant. Pt denied complaints at time of D/C.
== END 2019-09-05 13:45 | disposition home or self-care (01) | DRG 788 ==
LOC: 3 SO LND 16:49 → OBSVTOIN 09-02 07:59 → 3 NORTH 09-02 11:04
PROVIDERS: ADMIT Obstetrics & Gynecology; ATTEND Obstetrics & Gynecology
PROC: 10D00Z1 Extraction of Products of Conception, Low, Open Approach (ICD-10-PCS; principal; 2019-09-02)
DX: O34.211 Maternal care for low transverse scar from previous cesarean delivery (principal); Z3A.38 38 weeks gestation of pregnancy; Z37.0 Single live birth
CPT/HCPCS: 36415; 76815; 76819; 80307; 81001; 85025; 86592; 86703; 86850; 86900; 86901; 87086; 87653; G0378; G0379; J0171; J0696; J1100; J1885; J2001; J2274; J2370; J2405; J2590; J3010; J7120; Q0163

== ENCOUNTER → 2019-09-01 | Outpatient (CLI) | payer OTHER ==
[~2019-09-01] VITALS: Ht 154.9 cm; Wt 101.6 kg
[2019-09-01 14:54] VITALS: BP 125/65
== END | disposition home or self-care (01) ==
LOC: LAB 13:40
PROVIDERS: ATTEND Obstetrics & Gynecology
DX: Z01.83 Encounter for blood typing (principal)
CPT/HCPCS: 36415; 86850; 86900; 86901; 96372; J2791

== ENCOUNTER 2020-12-18 10:46 | Inpatient (IN) | payer OTHER ==
[~2020-12-18] VITALS: Ht 158.8 cm; Wt 99.3 kg
[~2020-12-18 10:46] MED LIST changes: +DOCU-153 PO; +IBUP-1027 PO
[2020-12-18] MEDS ORDERED: IV RINGERS,LACTATED 500ML 500 ML IV PRN (11:15)
[2020-12-18 11:27] VITALS: BP 122/55
[2020-12-18 11:40] LABS: BILIRUBIN,URINE NEGATIVE (NEG); CLARITY,URINE CLEAR; COLOR,URINE YELLOW; NITRITE,URINE NEGATIVE (NEG); PROTEIN,URINE NEGATIVE (NEG-TRACE); UROBILINOGEN,URINE 0.2 mg/dL (0.2 mg/dL)
[2020-12-18 11:49] LABS: BACTERIA,URINE MANY /HPF (0-FEW)
[2020-12-18 11:50] LABS: RBC,URINE 0 /HPF (0-2)
[2020-12-18] MEDS ORDERED: TERBUTALINE 1 MG/ML VIAL. SQ PRN (12:00)
[2020-12-18] MEDS ORDERED: LIDOCAINE 1% PF 30 ML VIAL. INJ PRN (12:00)
[2020-12-18] MEDS ORDERED: OXYTOCIN 30 UNIT/500 ML PREMIX 500 ML IV PRN ×3 (12:00→14:30)
[2020-12-18] MEDS: IV RINGERS,LACTATED 1000ML 1,000 ML IV SCH ×3 (12:00→20:14)
[2020-12-18] MEDS ORDERED: IBUPROFEN 400 MG TABLET. PO PRN (12:00)
[2020-12-18] MEDS ORDERED: 0.9 % SODIUM CHLORIDE 10 ML DISP.SYRIN. IV PRN ×2 (12:00→14:30)
[2020-12-18] MEDS ORDERED: CITRIC ACID/SODIUM CITRATE 30 ML SOLUTION. PO ONE (12:30)
--- NOTE | 2020-12-18 12:35 | PDOC1 ---
OB - History Hx of Present Care: Limited Care Ultrasounds: Normal mid trimester US Obstetrical Complications: None Medical Complications: None Past Family/Social History * Past Medical, Surgical, Family and Obstetric Histories reviewed from chart. Blood Type: O- Rubella: Immune RPR/VDRL: Negative GBS Status: Positive HBsAG: Negative OB - Chief Complaint & HPI Date of Admission: Date of Admission: Dec 18, 2020 at 10:46 Chief Complaint/History : 5 Para: 4 EGA: 38 Reason for admission: active labor, section Admission Nurse Assessment Rev: Yes OB - Admission Exam Physical Exam Vitals: VS - Last 72 Hours, by Label Date Time Temp Pulse Resp B/P (MAP) Pulse Ox O2 Delivery O2 Flow Rate FiO2 12/18/20 11:27 99.1 59 20 122/55 (77) 99.1 HEENT: Normal Heart: Regular Rate Lungs: Clear Abdomen: Gravid, Soft, Tender Extremities: Edema Reflexes: Normal Cervical Dilatation: Fingertip Effacement: 25% Station: -3 Heart Rate: Normal Accelerations: Accelerations Present Decelerations: No decelerations Contractions on Admission: < 5 Minutes Apart Intensity: Moderate Text A: 38 wks IUP Previous c/s x 4 Early labor GBS positive P: ADmit for repeat c/s. DB RAMOS Jr, MD Dec 18, 2020 12:35
[2020-12-18] MEDS ORDERED: MORPHINE PF 10 MG/10 ML AMPUL. ONE (12:40)
[2020-12-18] MEDS ORDERED: fentaNYL PF VIAL 100 MCG/2 ML VIAL ONE (12:41)
[2020-12-18 13:02] LABS: BASO % 0 % (0-3); EOS # 0.1 x10^3/uL (0.0-0.7); EOS % 1 % (0-3); HEMATOCRIT 26.9 % (36.0-47.0); HEMOGLOBIN 8.6 g/dL (12.0-15.5); LYMPH # 2.1 x10^3/uL (1.0-4.8); LYMPH % 25 % (24-48); MEAN CORPUSCULAR HEMOGLOBIN 23 pg (25-35); MEAN CORPUSCULAR HGB CONC 32 g/dL (31-37); MEAN CORPUSCULAR VOLUME 71 fL (79-100); MONO # 0.5 x10^3/uL (0.0-1.1); MONO % 6 % (0-9); NEUT # 5.8 x10^3/uL (1.8-7.7); NEUT % 68 % (31-73); PLATELET COUNT 231 x10^3/uL (140-400); RED CELL DISTRIBUTION WIDTH 16.7 % (11.5-14.5); WHITE BLOOD COUNT 8.5 x10^3/uL (4.0-11.0)
[2020-12-18] MEDS ORDERED: ONDANSETRON PF 4 MG/2 ML VIAL. ONE (13:34)
[2020-12-18] MEDS ORDERED: FAMOTIDINE 20 MG/2 ML VIAL ONE (13:34)
[2020-12-18] MEDS ORDERED: PHENYLEPHRINE in 0.9% NACL PF 1 MG/10 ML SYRINGE. IV ONE (13:34)
[2020-12-18] MEDS ORDERED: METOCLOPRAMIDE HCL 10 MG/2 ML VIAL. ONE (13:34)
[2020-12-18] MEDS ORDERED: OXYTOCIN 10 UNIT/ML VIAL. ONE ×2 (13:52→14:04)
--- NOTE | 2020-12-18 14:19 | PDOC4 ---
OB Operative Note Date: Dec 18, 2020 PRE OP DIAGNOSIS: Previoujs C- section (early labor) POST OP DIAGNOSIS: Other (Same) OPERATION PERFORMED: R [facility] Surgeon Dr. Vera Anesthesia: Regional (Spinal) Blood Loss 500 ml Specimen placenta and OB Findings: Position (Vertex), Sex (Male), (7/9), Weight (6 Lb), Fluid (Meconium), Nuchal Cord (x1) Complications none Additional Remarks pt. DB Shay Jr, MD Dec 18, 2020 14:18
[2020-12-18] MEDS ORDERED: ZOLPIDEM 5 MG TABLET. PO PRN (14:30)
[2020-12-18] MEDS ORDERED: SIMETHICONE 80 MG TAB.CHEW PO PRN (14:30)
[2020-12-18] MEDS ORDERED: ONDANSETRON PF 4 MG/2 ML VIAL. IV PRN (14:30)
[2020-12-18] MEDS ORDERED: DOCUSATE SODIUM 100 MG CAPSULE. PO PRN (14:30)
[2020-12-18] MEDS ORDERED: MAG HYDROX/ALUMINUM HYD/SIMETH 30 ML ORAL.SUSP PO PRN (14:30)
[2020-12-18] MEDS ORDERED: diphenhydrAMINE ORAL ELIXIR 12.5 MG/5 ML ML PO PRN (14:30)
--- NOTE | 2020-12-18 14:36 | OP ---
DATE OF SURGERY: PREOPERATIVE DIAGNOSES: 1. A 38 weeks intrauterine . 2. Previous section x 4. 3. Early labor. 4. GBS positive. POSTOPERATIVE DIAGNOSES: 1. A 38 weeks intrauterine . 2. Previous section x 4. 3. Early labor. 4. GBS positive. PROCEDURE: Repeat low transverse section. SURGEON: Db Vera MD ANESTHESIA: Spinal. ESTIMATED BLOOD LOSS: 500 mL. COMPLICATIONS: None. FINDINGS: Viable male infant, Apgars 7 and 9, weight 6 pounds. Three-vessel cord placenta delivered manually intact. Nuchal cord x 1. SUMMARY: A 30-year-old 5, para 4 at 38 weeks, presented with regular contractions and early labor. She was counseled on risks, benefits and expectations of repeat section and voiced clear understanding to proceed. DESCRIPTION OF PROCEDURE: The patient was taken to surgery suite and placed in dorsal supine position. She was prepped with ChloraPrep and draped in sterile fashion. After adequate anesthesia, Pfannenstiel skin incision was made with scalpel down to and through the fascia. Fascia was extended laterally using curved Rodríguez scissors. The superior edge of fascia was grasped with two Nancy clamps and dissected free of the abdominal rectus muscles using blunt dissection along with Bovie cautery. The same process took place inferiorly. The abdominal rectus muscle dissected bluntly at the midline. Peritoneum was grasped with 2 hemostats and entered sharply with Metzenbaum scissors. This incision was extended superiorly as well as inferiorly. The Brian ring retractor was placed. Low transverse hysterotomy incision was made with a scalpel down to the amniotic sac. There was about 4 cm size uterine dehiscence. Amniotomy was performed with Allis clamp, which elicited moderate amount of meconium-stained amniotic fluid. With the aid of fundal pressure, the 's head was delivered in a smooth atraumatic manner. With additional fundal pressure, the anterior shoulder was delivered followed by posterior shoulder. Rest of male was delivered. Nuchal cord x 1 was visualized and reduced. Infant was suctioned with a bulb syringe orally and nasally, umbilical cord was clamped twice and cut. Viable male infant was handed to waiting nursing staff. Umbilical cord blood was then obtained. Three-vessel cord placenta was delivered manually intact. The uterus was then exteriorized and cleared of clot and debris with moist lap. Hysterotomy incision was reapproximated using #1 Vicryl suture in running locked fashion. A [id number] suture was placed in the right apex of the hysterotomy incision for better hemostasis. Uterus palpated firm. Fallopian tubes and ovaries appeared normal bilaterally. Posterior cul-de-sac was cleared of clot and debris with moist lap. The uterus was then returned to the abdomen. Pericolic gutters were cleared of clot and debris with a moist lap. Hysterotomy incision was reviewed and was hemostatic. The Brian ring retractor was removed. Peritoneum was reapproximated using 1 Vicryl suture in running fashion. Abdominal rectus muscles were reapproximated using 1 Vicryl suture in running fashion. Fascia was reapproximated using Stratafix in running fashion. Skin was reapproximated using 4-0 Vicryl suture in subcuticular manner. The patient tolerated the procedure well and was taken to recovery room in stable condition. Sponge and needle count correct x 3. DB VERA MD DR: AHMET/martell JOB#: [id number] / [id number]
[2020-12-18 14:49] LABS: ANISOCYTOSIS SLIGHT; HYPOCHROMIA MOD; MICROCYTOSIS MOD; PLT ESTIMATE ADEQUATE (ADEQUATE); POLYCHROMASIA SLIGHT
[2020-12-18 15:28] LABS: BARBITURATES NEG (NEG); BENZODIAZEPINES NEG (NEG); CANNABINOIDS POS (NEG); COCAINE NEG (NEG); METHADONE NEG (NEG); OPIATES NEG (NEG); PHENCYCLIDINE NEG (NEG)
[2020-12-18 15:30] LABS: AMPHETAMINE/METHAMPHETAMINE NEG (NEG)
[2020-12-18] MEDS: KETOROLAC 30 MG/ML VIAL. IV PRN (15:59)
[2020-12-18 16:50] VITALS: BP 103/49
[2020-12-18] MEDS: FERROUS SULFATE 325 MG TABLET. PO SCH (17:00)
[2020-12-18 17:05] VITALS: BP 109/56
[2020-12-18 17:30] VITALS: BP 111/56
[2020-12-18 18:05] VITALS: BP 106/53
[2020-12-18 22:30] VITALS: BP 104/44
[2020-12-19] VITALS (13 sets, daily range): BP systolic 95–124; BP diastolic 46–66
[2020-12-19] MEDS: IV RINGERS,LACTATED 1000ML 1,000 ML IV SCH ×4 (03:15→20:00)
[2020-12-19] MEDS: KETOROLAC 30 MG/ML VIAL. IV PRN (03:55)
[2020-12-19 08:47] LABS: BASO % 0 % (0-3); EOS % 1 % (0-3); LYMPH # 1.8 x10^3/uL (1.0-4.8); LYMPH % 20 % (24-48); MEAN CORPUSCULAR HEMOGLOBIN 23 pg (25-35); MEAN CORPUSCULAR HGB CONC 33 g/dL (31-37); MEAN CORPUSCULAR VOLUME 71 fL (79-100); MONO # 0.6 x10^3/uL (0.0-1.1); MONO % 7 % (0-9); NEUT # 6.5 x10^3/uL (1.8-7.7); NEUT % 72 % (31-73); PLATELET COUNT 192 x10^3/uL (140-400); RED BLOOD COUNT 2.97 x10^6/uL (3.50-5.40); RED CELL DISTRIBUTION WIDTH 16.3 % (11.5-14.5)
[2020-12-19] MEDS: MULTIVITAMIN with MINERAL TABLET. PO SCH (08:49)
[2020-12-19] MEDS: FERROUS SULFATE 325 MG TABLET. PO SCH ×2 (08:50→17:23)
[2020-12-19] MEDS: oxyCODONE/APAP 5/325 1 TAB TABLET PO PRN ×3 (08:50→19:51)
[2020-12-19 09:01] LABS: HEMOGLOBIN 6.9 g/dL (12.0-15.5)
[2020-12-19] MEDS ORDERED: IV NORMAL SALINE 1000ML BAG 1,000 ML IV SCH (10:15)
--- NOTE | 2020-12-19 14:04 | PDOC ---
OB Progress Note Date of Service 12/19/20 Time of Evaluation 1400 Notes Pt. feeling well. Pain controlled. Hgb 6.9 this am. Will transfuse 2 Units PRBC's. Lab Laboratory Tests Test 12/18/20 10:55 12/18/20 11:56 12/18/20 12:15 12/19/20 07:05 Urine Collection Type Unknown Urine Color Yellow Urine Clarity Clear Urine pH 6.0 (<5.0-8.0) Urine Specific [place] 1.020 (1.000-1.030) Urine Protein Negative mg/dL (NEG-TRACE) Urine Glucose (UA) Negative mg/dL (NEG) Urine Ketones (Stick) Negative mg/dL (NEG) Urine Blood Negative (NEG) Urine Nitrite Negative (NEG) Urine Bilirubin Negative (NEG) Urine Urobilinogen Dipstick 0.2 mg/dL (0.2 mg/dL) Urine Leukocyte Esterase Moderate (NEG) Urine RBC 0 /HPF (0-2) Urine WBC 11-20 /HPF (0-4) Urine Squamous Epithelial Cells Mod /LPF Urine Bacteria Many /HPF (0-FEW) Urine Opiates Screen Neg (NEG) Urine Methadone Screen Neg (NEG) Urine Barbiturates Neg (NEG) Urine Phencyclidine Screen Neg (NEG) Urine Amphetamine/Methamphetamine Neg (NEG) Urine Benzodiazepines Screen Neg (NEG) Urine Cocaine Screen Neg (NEG) Urine Cannabinoids Screen Pos (NEG) Urine Ethyl Alcohol Neg (NEG) SARS-CoV-2 RNA (THIEN) Negative (Negative) SARS-CoV-2 Antigen (Rapid) Negative (NEGATIVE) White Blood Count 8.5 x10^3/uL (4.0-11.0) 9.0 x10^3/uL (4.0-11.0) Red Blood Count 3.80 x10^6/uL (3.50-5.40) 2.97 x10^6/uL (3.50-5.40) Hemoglobin 8.6 g/dL (12.0-15.5) 6.9 g/dL (12.0-15.5) Hematocrit 26.9 % (36.0-47.0) 21.0 % (36.0-47.0) Mean Corpuscular Volume 71 fL (79-100) 71 fL (79-100) Mean Corpuscular Hemoglobin 23 pg (25-35) 23 pg (25-35) Mean Corpuscular Hemoglobin Concent 32 g/dL (31-37) 33 g/dL (31-37) Red Cell Distribution Width 16.7 % (11.5-14.5) 16.3 % (11.5-14.5) Platelet Count 231 x10^3/uL (140-400) 192 x10^3/uL (140-400) Neutrophils (%) (Auto) 68 % (31-73) 72 % (31-73) Lymphocytes (%) (Auto) 25 % (24-48) 20 % (24-48) Monocytes (%) (Auto) 6 % (0-9) 7 % (0-9) Eosinophils (%) (Auto) 1 % (0-3) 1 % (0-3) Basophils (%) (Auto) 0 % (0-3) 0 % (0-3) Neutrophils # (Auto) 5.8 x10^3/uL (1.8-7.7) 6.5 x10^3/uL (1.8-7.7) Lymphocytes # (Auto) 2.1 x10^3/uL (1.0-4.8) 1.8 x10^3/uL (1.0-4.8) Monocytes # (Auto) 0.5 x10^3/uL (0.0-1.1) 0.6 x10^3/uL (0.0-1.1) Eosinophils # (Auto) 0.1 x10^3/uL (0.0-0.7) 0.0 x10^3/uL (0.0-0.7) Basophils # (Auto) 0.0 x10^3/uL (0.0-0.2) 0.0 x10^3/uL (0.0-0.2) Platelet Estimate Adequate (ADEQUATE) Polychromasia Slight Hypochromasia Mod Anisocytosis Slight Microcytosis Mod Treponema pallidum Antibody Nonreactive (Nonreactive) Hepatitis B Surface Antigen Nonreactive (Nonreactive) Laboratory Tests Test 12/19/20 07:05 White Blood Count 9.0 x10^3/uL (4.0-11.0) Red Blood Count 2.97 x10^6/uL (3.50-5.40) Hemoglobin 6.9 g/dL (12.0-15.5) Hematocrit 21.0 % (36.0-47.0) Mean Corpuscular Volume 71 fL (79-100) Mean Corpuscular Hemoglobin 23 pg (25-35) Mean Corpuscular Hemoglobin Concent 33 g/dL (31-37) Red Cell Distribution Width 16.3 % (11.5-14.5) Platelet Count 192 x10^3/uL (140-400) Neutrophils (%) (Auto) 72 % (31-73) Lymphocytes (%) (Auto) 20 % (24-48) Monocytes (%) (Auto) 7 % (0-9) Eosinophils (%) (Auto) 1 % (0-3) Basophils (%) (Auto) 0 % (0-3) Neutrophils # (Auto) 6.5 x10^3/uL (1.8-7.7) Lymphocytes # (Auto) 1.8 x10^3/uL (1.0-4.8) Monocytes # (Auto) 0.6 x10^3/uL (0.0-1.1) Eosinophils # (Auto) 0.0 x10^3/uL (0.0-0.7) Basophils # (Auto) 0.0 x10^3/uL (0.0-0.2) Medications Current Medications Ringer's Solution 500 ml @ 500 mls/hr CONT PRN PRN IV PER PROTOCOL; Start 12/18/20 at 11:15 Ringer's Solution 1,000 ml @ 125 mls/hr Q8H IV Last administered on 12/18/20at 20:14; Start 12/18/20 at 11:15; Stop 12/19/20 at 04:26; Status DC Sodium Chloride (Normal Saline Flush) 3 ml QSHIFT PRN IV AFTER MEDS AND BLOOD DRAWS; Start 12/18/20 at 12:00 Ringer's Solution 1,000 ml @ 125 mls/hr Q8H IV Last administered on 12/19/20at 03:55; Start 12/18/20 at 12:00 Terbutaline Sulfate (Brethine) 0.25 mg 1X PRN PRN SQ SEE COMMENTS Last administered on 12/18/20at 12:32; Start 12/18/20 at 12:00; Stop 12/19/20 at 11:59; Status DC Lidocaine HCl (Xylocaine 1% Pf 30ml Vial) 30 ml 1X PRN PRN INJ SEE COMMENTS; Start 12/18/20 at 12:00; Stop 12/20/20 at 11:59 Oxytocin 500 ml @ 0 mls/hr CONT PRN IV SEE I/O RECORD; Start 12/18/20 at 12:00 Oxytocin 500 ml @ 0 mls/hr CONT PRN PRN IV Post delivery bleeding; Start 12/18/20 at 12:00 Ibuprofen (Motrin) 800 mg PRN Q6HRS PRN PO INFLAMMATION; Start 12/18/20 at 12:00; Status Cancel Cefazolin Sodium/ Dextrose 50 ml @ 100 mls/hr 1X ONCE IV Last administered on 12/18/20at 13:02; Start 12/18/20 at 12:00; Stop 12/18/20 at 12:29; Status DC Citric Acid/ Sodium Citrate (Bicitra) 30 ml 1X ONCE PO Last administered on 12/18/20at 13:01; Start 12/18/20 at 12:30; Stop 12/18/20 at 12:31; Status DC Morphine Sulfate (Morphine Preservative Free) 10 mg STK-MED ONCE .ROUTE ; Start 12/18/20 at 12:40; Stop 12/18/20 at 12:41; Status DC Fentanyl Citrate (Fentanyl 2ml Vial) 100 mcg STK-MED ONCE .ROUTE ; Start 12/18/20 at 12:41; Stop 12/18/20 at 12:41; Status DC Phenylephrine HCl (PHENYLEPHRINE in 0.9% NACL PF) 1 mg STK-MED ONCE IV ; Start 12/18/20 at 13:34; Stop 12/18/20 at 13:34; Status DC Famotidine (Pepcid Vial) 20 mg STK-MED ONCE .ROUTE ; Start 12/18/20 at 13:34; Stop 12/18/20 at 13:34; Status DC Metoclopramide HCl (Reglan Vial) 10 mg STK-MED ONCE .ROUTE ; Start 12/18/20 at 13:34; Stop 12/18/20 at 13:34; Status DC Ondansetron HCl (Zofran) 4 mg STK-MED ONCE .ROUTE ; Start 12/18/20 at 13:34; Stop 12/18/20 at 13:34; Status DC Oxytocin (Pitocin) 10 unit STK-MED ONCE .ROUTE ; Start 12/18/20 at 13:52; Stop 12/18/20 at 13:52; Status DC Oxytocin (Pitocin) 10 unit STK-MED ONCE .ROUTE ; Start 12/18/20 at 14:04; Stop 12/18/20 at 14:05; Status DC Sodium Chloride (Normal Saline Flush) 3 ml QSHIFT PRN IV AFTER MEDS AND BLOOD DRAWS; Start 12/18/20 at 14:30 Oxytocin 500 ml @ 125 mls/hr CONT PRN IV EXCESSIVE POST- BLEEDING; Start 12/18/20 at 14:30; Stop 12/18/20 at 22:29; Status DC Ibuprofen (Motrin) 800 mg PRN Q8HRS PRN PO INFLAMMATION; Start 12/18/20 at 14:30 Ondansetron HCl (Zofran) 4 mg PRN Q6HRS PRN IV NAUSEA/VOMITING; Start 12/18/20 at 14:30 Docusate Sodium (Colace) 100 mg PRN BID PRN PO CONSTIPATION; Start 12/18/20 at 14:30 Al Hydroxide/Mg Hydroxide (Mylanta Plus Xs) 30 ml PRN Q4HRS PRN PO HEARTBURN / GAS; Start 12/18/20 at 14:30 Simethicone (Gas-X) 80 mg PRN AFTMEALHC PRN PO GAS / BLOATING; Start 12/18/20 at 14:30 Diphenhydramine HCl (Benadryl Oral Elixir) 12.5 mg PRN Q6HRS PRN PO ITCHING; Start 12/18/20 at 14:30 Ferrous Sulfate (Feosol) 325 mg BIDWMEALS PO Last administered on 12/19/20at 08:50; Start 12/18/20 at 17:00 Zolpidem Tartrate (Ambien) 5 mg PRN QHS PRN PO INSOMNIA, MAY REPEAT X1; Start 12/18/20 at 14:30 Oxycodone/ Acetaminophen (Percocet 5/325) 2 tab PRN Q4HRS PRN PO MODERATE PAIN, SEVERE PAIN Last administered on 12/19/20at 13:34; Start 12/18/20 at 14:30 Ketorolac Tromethamine (Toradol 30mg Vial) 30 mg PRN Q6HRS PRN IV INFLAMMATION/PAIN Last administered on 12/19/20at 03:55; Start 12/18/20 at 14:30; Stop 12/23/20 at 14:29 Multivitamins (Thera M Plus) 1 tab DAILY PO Last administered on 12/19/20at 08:49; Start 12/19/20 at 09:00 Sodium Chloride 1,000 ml @ 0 mls/hr Q0M IV ; Start 12/19/20 at 10:15 Active Scripts Active Dok (Docusate Sodium) 100 Mg Capsule 100 Mg PO PRN BID PRN Percocet 5-325 Mg Tablet (Oxycodone/Acetaminophen) 1 Each Tablet 2 Tab PO PRN Q6HRS PRN Ibuprofen 400 Mg Tablet 800 Mg PO PRN Q8HRS PRN Reported Vitamins ( Vits W-Ca,Fe,Fa(<1MG)) 1 Each Tablet 1 Tab PO DAILY Exam Abd: soft, mild tenderness, fundus firm Bandage removed; Incision site: clean, dry an intact Assessment POD#1 s/p repeat c/s Plan of Care: Continue current Tx, Mgmt DB RAMOS Jr, MD Dec 19, 2020 14:04
--- NOTE | 2020-12-19 17:06 | NUR ---
Normal Saline for blood transfusion started at 1015, ended at 1615.
[2020-12-19] MEDS: IBUPROFEN 400 MG TABLET. PO PRN (19:50)
[2020-12-20] MEDS: oxyCODONE/APAP 5/325 1 TAB TABLET PO PRN ×5 (00:22→19:56)
[2020-12-20 03:00] VITALS: BP 106/56
[2020-12-20] MEDS: IV RINGERS,LACTATED 1000ML 1,000 ML IV SCH (04:00)
[2020-12-20] MEDS: IBUPROFEN 400 MG TABLET. PO PRN ×3 (04:57→23:58)
[2020-12-20 07:48] VITALS: BP 114/61
[2020-12-20] MEDS: MULTIVITAMIN with MINERAL TABLET. PO SCH (09:11)
[2020-12-20] MEDS: FERROUS SULFATE 325 MG TABLET. PO SCH ×2 (09:12→18:38)
--- NOTE | 2020-12-20 13:07 | PDOC ---
OB Progress Note Date of Service 12/20/20 Time of Evaluation 1300 Notes Pt. feeling well. Pain controlled. No complaints. Lab Laboratory Tests Test 12/19/20 07:05 White Blood Count 9.0 x10^3/uL (4.0-11.0) Red Blood Count 2.97 x10^6/uL (3.50-5.40) Hemoglobin 6.9 g/dL (12.0-15.5) Hematocrit 21.0 % (36.0-47.0) Mean Corpuscular Volume 71 fL (79-100) Mean Corpuscular Hemoglobin 23 pg (25-35) Mean Corpuscular Hemoglobin Concent 33 g/dL (31-37) Red Cell Distribution Width 16.3 % (11.5-14.5) Platelet Count 192 x10^3/uL (140-400) Neutrophils (%) (Auto) 72 % (31-73) Lymphocytes (%) (Auto) 20 % (24-48) Monocytes (%) (Auto) 7 % (0-9) Eosinophils (%) (Auto) 1 % (0-3) Basophils (%) (Auto) 0 % (0-3) Neutrophils # (Auto) 6.5 x10^3/uL (1.8-7.7) Lymphocytes # (Auto) 1.8 x10^3/uL (1.0-4.8) Monocytes # (Auto) 0.6 x10^3/uL (0.0-1.1) Eosinophils # (Auto) 0.0 x10^3/uL (0.0-0.7) Basophils # (Auto) 0.0 x10^3/uL (0.0-0.2) Medications Current Medications Ringer's Solution 500 ml @ 500 mls/hr CONT PRN PRN IV PER PROTOCOL; Start 12/18/20 at 11:15 Ringer's Solution 1,000 ml @ 125 mls/hr Q8H IV Last administered on 12/18/20at 20:14; Start 12/18/20 at 11:15; Stop 12/19/20 at 04:26; Status DC Sodium Chloride (Normal Saline Flush) 3 ml QSHIFT PRN IV AFTER MEDS AND BLOOD DRAWS; Start 12/18/20 at 12:00; Status Cancel Ringer's Solution 1,000 ml @ 125 mls/hr Q8H IV Last administered on 12/19/20at 03:55; Start 12/18/20 at 12:00 Terbutaline Sulfate (Brethine) 0.25 mg 1X PRN PRN SQ SEE COMMENTS Last administered on 12/18/20at 12:32; Start 12/18/20 at 12:00; Stop 12/19/20 at 11:59; Status DC Lidocaine HCl (Xylocaine 1% Pf 30ml Vial) 30 ml 1X PRN PRN INJ SEE COMMENTS; Start 12/18/20 at 12:00; Stop 12/20/20 at 11:59; Status DC Oxytocin 500 ml @ 0 mls/hr CONT PRN IV SEE I/O RECORD; Start 12/18/20 at 12:00 Oxytocin 500 ml @ 0 mls/hr CONT PRN PRN IV Post delivery bleeding; Start 12/18/20 at 12:00 Ibuprofen (Motrin) 800 mg PRN Q6HRS PRN PO INFLAMMATION; Start 12/18/20 at 12:0 0; Status Cancel Cefazolin Sodium/ Dextrose 50 ml @ 100 mls/hr 1X ONCE IV Last administered on 12/18/20at 13:02; Start 12/18/20 at 12:00; Stop 12/18/20 at 12:29; Status DC Citric Acid/ Sodium Citrate (Bicitra) 30 ml 1X ONCE PO Last administered on at 13:01; Start 12/18/20 at 12:30; Stop 12/18/20 at 12:31; Status DC Morphine Sulfate (Morphine Preservative Free) 10 mg STK-MED ONCE .ROUTE ; Start 12/18/20 at 12:40; Stop 12/18/20 at 12:41; Status DC Fentanyl Citrate (Fentanyl 2ml Vial) 100 mcg STK-MED ONCE .ROUTE ; Start 12/18/20 at 12:41; Stop 12/18/20 at 12:41; Status DC Phenylephrine HCl (PHENYLEPHRINE in 0.9% NACL PF) 1 mg STK-MED ONCE IV ; Start 12/18/20 at 13:34; Stop 12/18/20 at 13:34; Status DC Famotidine (Pepcid Vial) 20 mg STK-MED ONCE .ROUTE ; Start 12/18/20 at 13:34; Stop 12/18/20 at 13:34; Status DC Metoclopramide HCl (Reglan Vial) 10 mg STK-MED ONCE .ROUTE ; Start 12/18/20 at 13:34; Stop 12/18/20 at 13:34; Status DC Ondansetron HCl (Zofran) 4 mg STK-MED ONCE .ROUTE ; Start 12/18/20 at 13:34; Stop 12/18/20 at 13:34; Status DC Oxytocin (Pitocin) 10 unit STK-MED ONCE .ROUTE ; Start 12/18/20 at 13:52; Stop 12/18/20 at 13:52; Status DC Oxytocin (Pitocin) 10 unit STK-MED ONCE .ROUTE ; Start 12/18/20 at 14:04; Stop 12/18/20 at 14:05; Status DC Sodium Chloride (Normal Saline Flush) 3 ml QSHIFT PRN IV AFTER MEDS AND BLOOD DRAWS; Start 12/18/20 at 14:30 Oxytocin 500 ml @ 125 mls/hr CONT PRN IV EXCESSIVE POST- BLEEDING; Start 12/18/20 at 14:30; Stop 12/18/20 at 22:29; Status DC Ibuprofen (Motrin) 800 mg PRN Q8HRS PRN PO INFLAMMATION Last administered on 12/20/20at 04:57; Start 12/18/20 at 14:30 Ondansetron HCl (Zofran) 4 mg PRN Q6HRS PRN IV NAUSEA/VOMITING; Start 12/18/20 at 14:30 Docusate Sodium (Colace) 100 mg PRN BID PRN PO CONSTIPATION; Start 12/18/20 at 14:30 Al Hydroxide/Mg Hydroxide (Mylanta Plus Xs) 30 ml PRN Q4HRS PRN PO HEARTBURN / GAS; Start 12/18/20 at 14:30 Simethicone (Gas-X) 80 mg PRN AFTMEALHC PRN PO GAS / BLOATING; Start 12/18/20 at 14:30 Diphenhydramine HCl (Benadryl Oral Elixir) 12.5 mg PRN Q6HRS PRN PO ITCHING; Start 12/18/20 at 14:30 Ferrous Sulfate (Feosol) 325 mg BIDWMEALS PO Last administered on 12/20/20at 09:12; Start 12/18/20 at 17:00 Zolpidem Tartrate (Ambien) 5 mg PRN QHS PRN PO INSOMNIA, MAY REPEAT X1; Start 12/18/20 at 14:30 Oxycodone/ Acetaminophen (Percocet 5/325) 2 tab PRN Q4HRS PRN PO MODERATE PAIN, SEVERE PAIN Last administered on 12/20/20at 09:12; Start 12/18/20 at 14:30 Ketorolac Tromethamine (Toradol 30mg Vial) 30 mg PRN Q6HRS PRN IV INFLAM MATION/PAIN Last administered on 12/19/20at 03:55; Start 12/18/20 at 14:30; Stop 12/23/20 at 14:29 Multivitamins (Thera M Plus) 1 tab DAILY PO Last administered on 12/20/20at 09:11; Start 12/19/20 at 09:00 Sodium Chloride 1,000 ml @ 0 mls/hr Q0M IV Last administered on 12/19/20at 17:05; Start 12/19/20 at 10:15 Active Scripts Active Dok (Docusate Sodium) 100 Mg Capsule 100 Mg PO PRN BID PRN Percocet 5-325 Mg Tablet (Oxycodone/Acetaminophen) 1 Each Tablet 2 Tab PO PRN Q6HRS PRN Ibuprofen 400 Mg Tablet 800 Mg PO PRN Q8HRS PRN Reported Vitamins ( Vits W-Ca,Fe,Fa(<1MG)) 1 Each Tablet 1 Tab PO DAILY Exam Abd: soft, mild tenderness, fundus firm Incision site: clean, dry and intact Assessment POD#2 s/p repeat c/s Plan of Care: Continue current Tx, Mgmt DB RAMOS Jr, MD Dec 20, 2020 13:07
[2020-12-20 13:09] LABS: HEMATOCRIT 26.1 % (36.0-47.0); HEMOGLOBIN 8.8 g/dL (12.0-15.5)
[2020-12-20 14:30] VITALS: BP 129/68
[2020-12-20 19:30] VITALS: BP 137/79
[2020-12-20 23:21] VITALS: BP 120/60
[2020-12-21 05:00] VITALS: BP 120/77
[2020-12-21] MEDS: IBUPROFEN 400 MG TABLET. PO PRN (08:04)
[2020-12-21] MEDS: oxyCODONE/APAP 5/325 1 TAB TABLET PO PRN ×2 (09:27→15:01)
[2020-12-21 09:30] VITALS: BP 101/47
--- NOTE | 2020-12-21 10:21 | NUR ---
SS following up with referral regarding "mother UDS positive for Marijuana. [facility] hotline report made on 12/19/2020. Hotline#[phone]. Baby has been breathing fast, low grade fevers, and is very jittery. Meconium sent on 12/19/2020." SS reviewed pt chart and discussed with infant RN. Infant Meconium positive for Marijuana. LUPE score now 7. continues to have fast breathing, be jittery, and low grade fever. SS met with mother to assess needs. Mother reported that she is formula feeding infant. Mother reported having all other needs and supplies for infant. Mother reported having good transportation and good family support. SS e-mailed and left voicemail for DCF Senior Java Software Developer, Pricilla Phillips, at [facility] to follow up with hotline report. Pricilla reported that the report was screened out and discharge is at the hospitals discretion. Infant RN notified. SS will continue to follow as needed.
--- NOTE | 2020-12-21 11:00 | PDOC3 ---
OB DISCHARGE SUMMARY DATE OF ADMISSION: 12/18/20 DATE OF DISCHARGE: 12/21/20 REASON FOR ADMISSION: Onset of labor, section INTRAPARTUM PROCEDURES: : Low Cerv Trans DISCHARGE DIAGNOSIS: Term Delivered DISCHARGE INFORMATION: Activity (adl ib), Diet (regular), Instructions (pelvic rest x 6 wks, no driving x 2 wks, no lifting > 20 lbs. x 4 wks) HOSPITAL COURSE Term gestation delivered repeat section without complications. DB RAMOS Jr, MD Dec 21, 2020 11:00
[2020-12-21] MEDS ORDERED: IBUP-1027 PO (11:06)
[2020-12-21] MEDS ORDERED: OXYC1TAB15 PO (11:06)
[2020-12-21] MEDS ORDERED: DOCU-153 PO (11:06)
--- NOTE | 2020-12-21 11:07 | DISCH ---
DISCHARGE INSTRUCTIONS Condition on Discharge Condition on Discharge: Stable Activity After Discharge Activity Instructions for Disc: Avoid exertion Bathing Instructions: Shower-keep dressing dry, No Tub Bath until see Lifting Instructions after Dis: No heavy lifting, No pulling or pushing, Do not lift >10 pounds Exercise Instruction after Dis: Progress as tolerated Driving Instructions after Dis: No driving for 2 weeks Diet after Discharge Diet after Discharge: Regular Diet Texture: Regular Liquid Texture: Thin Liquid Swallowing Supervision: None needed Contacting the DRJason after DC Call your doctor for: Concerns you may have Follow-Up Follow up with: Dr. Vera in 2 weeks Treatment/Equipment after DC Adaptive Equipment Issued: None DB VERA Jr, MD Dec 21, 2020 11:07
[2020-12-21 14:20] VITALS: BP 122/60
[2020-12-21 17:40] VITALS: BP 113/70
== END 2020-12-21 19:27 | disposition home or self-care (01) | DRG 788 ==
LOC: 3 SO LND 10:46 → OBSVTOIN 10:46 → 3 SO LND 16:30
PROVIDERS: ADMIT Obstetrics & Gynecology; ATTEND Obstetrics & Gynecology
PROC: 10D00Z1 Extraction of Products of Conception, Low, Open Approach (ICD-10-PCS; principal; 2020-12-18)
PROC: 30233N1 Transfusion of Nonautologous Red Blood Cells into Peripheral Vein, Percutaneous Approach (ICD-10-PCS; 2020-12-18)
PROC: 3E0334Z Introduction of Serum, Toxoid and Vaccine into Peripheral Vein, Percutaneous Approach (ICD-10-PCS; 2020-12-18)
DX: O34.211 Maternal care for low transverse scar from previous cesarean delivery (principal); O26.893 Other specified pregnancy related conditions, third trimester; O99.824 Streptococcus B carrier state complicating childbirth; O77.0 Labor and delivery complicated by meconium in amniotic fluid; O69.81X0 Labor and delivery complicated by cord around neck, without compression, not applicable or unspecified; Z20.822 Contact with and (suspected) exposure to COVID-19; Z67.41 Type O blood, Rh negative; Z3A.38 38 weeks gestation of pregnancy; Z37.0 Single live birth
CPT/HCPCS: 36415; 36430; 80307; 81001; 85014; 85018; 85025; 85461; 86592; 86703; 86762; 86850; 86900; 86901; 86920; 87077; 87086; 87186; 87340; 87426; C1755; J0690; J1885; J2274; J2370; J2405; J2590; J2765; J3010; J3105; J3490; J7030; J7120; P9016; U0003; U0005; G0378